=== PATIENT | female | born 1940 | race Two or more races ===

== ENCOUNTER 2018-06-26 12:47 | Emergency (ER) | payer MEDICARE, OTHER ==
[~2018-06-26] VITALS: Ht 162.6 cm; Wt 87.7 kg
[2018-06-26 13:20] LABS: BASOPHILS # (AUTO) 0.06 x10^3/uL (0-0.1); BASOPHILS % (AUTO) 1 % (0-1); EOSINOPHILS # (AUTO) 0.24 x10^3/uL (0-0.4); EOSINOPHILS % (AUTO) 2 % (1-7); LYMPHOCYTES # (AUTO) 3.29 x10^3/uL (1-3.4); LYMPHOCYTES % (AUTO) 32 % (22-44); MD NO; MEAN CORPUSCULAR HEMOGLOBIN 31.7 pg (27.0-34.8); MEAN CORPUSCULAR HGB CONC 33.1 g/dL (32.4-35.8); MEAN CORPUSCULAR VOLUME 95.8 fL (80-100); MEAN PLATELET VOLUME 10.2 fL (7.4-10.4); MONOCYTES % (AUTO) 9 % (2-9); NEUTROPHILS # (AUTO) 5.89 x10^3/uL (1.8-6.8); NEUTROPHILS % (AUTO) 57 % (42-75); PLATELET COUNT 243 x10^3/uL (130-400); RED BLOOD COUNT 4.33 x10^6/uL (3.82-5.3); RED CELL DISTRIBUTION WIDTH 14.1 % (9.6-15.2)
[2018-06-26 13:27] LABS: INTERNATIONAL NORMALIZED RATIO 1.51 (0.93-1.1); PROTHROMBIN TIME 15.8 Seconds (9.6-11.5)
[2018-06-26 13:30] LABS: CHLORIDE 107 mmol/L (98-107)
[2018-06-26 13:31] LABS: ALBUMIN 3.6 g/dL (3.4-5.0); ANION GAP 7 mmol/L (5-15)
[2018-06-26 13:36] LABS: ALANINE AMINOTRANSFERASE 19 U/L (12-78); ALKALINE PHOSPHATASE 66 U/L (45-117); BILIRUBIN,TOTAL 0.6 mg/dL (0.2-1.0); CREATININE 1.38 mg/dL (0.55-1.02); TOTAL PROTEIN 7.7 g/dL (6.4-8.2); TROPONIN I < 0.015 ng/mL (0.000-0.045)
--- NOTE | 2018-06-26 15:24 | NUR ---
DIGITAL PROJECT COORDINATOR: PT TO ROOM FROM ANTOINE NUNO.
[2018-06-26] MEDS ORDERED: CEFTRIAXONE PMX 1GM/50ML 50 ML ONE (15:48)
[2018-06-26] MEDS ORDERED: AZITHROMYCIN 500 MG in SODIUM CHLORIDE 0.9% 250 ML IV ONE (16:00)
[2018-06-26] MEDS ORDERED: CEFTRIAXONE PMX 1GM/50ML 50 ML IV ONE (16:00)
[2018-06-26] MEDS ORDERED: SODIUM CHLORIDE 0.9% 1,000 ML IV SCH (16:00)
--- NOTE | 2018-06-26 16:01 | NUR ---
pt upright on gurney awake & comfortable, Bengali-speaking but responds approp to staff, NAD, comfort measures provided, at BS, call light within reach.
[2018-06-26 17:16] VITALS: BP 131/66
--- NOTE | 2018-06-26 17:36 | NUR ---
Patient & spouse given discharge instructions and Rx, they have confirmed that they understand the instructions. Patient ambulatory with steady gait.
== END 2018-06-26 17:36 | disposition home or self-care (01) ==
LOC: ED 17:05
DX: J15.9 Unspecified bacterial pneumonia (principal); I48.2 Chronic atrial fibrillation; I10 Essential (primary) hypertension
CPT/HCPCS: 36415; 71045; 80053; 84484; 85025; 85610; 93005; 96365; 96367; 99284; J0456; J0696; J7030; J7050

== ENCOUNTER → 2018-09-06 | Outpatient (CLI) | payer MEDICARE ==
[~2018-09-06] MED LIST: AMLO-150 PO; ASCO500T8 PO; ATOR20TA PO; CHOL200040 PO; HYDR25TA6 PO; LISI-167 PO; METO25TA35 PO; MULT-658 PO; OMEG1CAP23 PO; OMEP-110 PO; RIVA20TA PO; SIMV40TA3 PO; SYSTANE; aleve
== END | disposition home or self-care (01) ==
LOC: CFH 13:25
PROVIDERS: ATTEND Family Medicine
DX: L98.9 Disorder of the skin and subcutaneous tissue, unspecified (principal); S06.5X0A Traumatic subdural hemorrhage without loss of consciousness, initial encounter; R90.82 White matter disease, unspecified; X58.XXXA Exposure to other specified factors, initial encounter; Y93.89 Activity, other specified; Y92.89 Other specified places as the place of occurrence of the external cause; Y99.8 Other external cause status
CPT/HCPCS: 70450; 77066; G0279

== ENCOUNTER 2018-10-04 15:19 | Inpatient (IN) | payer MEDICARE ==
[~2018-10-04] VITALS: Ht 134.6 cm; Wt 88.4 kg
[2018-10-04 16:28] LABS: INTERNATIONAL NORMALIZED RATIO 1.02 (0.93-1.1); PROTHROMBIN TIME 10.7 Seconds (9.6-11.5)
[2018-10-04 16:29] LABS: ALANINE AMINOTRANSFERASE 21 U/L (12-78); ALBUMIN 3.7 g/dL (3.4-5.0); ANION GAP 9 mmol/L (5-15); CALCIUM 9.4 mg/dL (8.5-10.1); CHLORIDE 114 mmol/L (98-107); CREATININE 1.61 mg/dL (0.55-1.02)
[2018-10-04 16:33] LABS: ALKALINE PHOSPHATASE 71 U/L (45-117); BILIRUBIN,TOTAL 0.4 mg/dL (0.2-1.0); TOTAL PROTEIN 7.5 g/dL (6.4-8.2); TROPONIN I < 0.015 ng/mL (0.000-0.045)
[2018-10-04] MEDS ORDERED: DILTIAZEM 5 MG/ML, 10ML ONE (16:46)
[2018-10-04] MEDS ORDERED: DILTIAZEM 5 MG/ML, 5ML IVPush ONE (17:00)
[2018-10-04] MEDS ORDERED: SODIUM CHLORIDE FLUSH 10ML SYR IVF ONE (17:00)
[2018-10-04 17:07] LABS: MEAN CORPUSCULAR HEMOGLOBIN 31.7 pg (27.0-34.8); MEAN CORPUSCULAR HGB CONC 33.8 g/dL (32.4-35.8); MEAN CORPUSCULAR VOLUME 93.7 fL (80-100); MEAN PLATELET VOLUME 10.2 fL (7.4-10.4); PLATELET COUNT 185 x10^3/uL (130-400); RED BLOOD COUNT 4.48 x10^6/uL (3.82-5.3); RED CELL DISTRIBUTION WIDTH 15.2 % (9.6-15.2)
[2018-10-04 17:08] LABS: MD YES
[2018-10-04 17:11] LABS: <PLATELET ESTIMATE> ADEQUATE; <PLT MORPHOLOGY> NORMAL PLT MORPH; <RBC MORPHOLOGY> NORMAL; EOS#(MANUAL) 0.07 x10^3/uL (0.0-0.4); EOS% (MANUAL) 1 % (1-7); LYMPH#(MANUAL) 3.55 x10^3/uL (1-3.4); LYMPHS% (MANUAL) 48 % (22-44); MONOS#(MANUAL) 0.96 x10^3/uL (0.3-2.7); MONOS% (MANUAL) 13 % (2-9); REACTIVE LYMPHS # (MANUAL) 0.59 x10^3/uL (0-0); REACTIVE LYMPHS % (MANUAL) 8 % (0-0); SEG#(MANUAL) 2.22 x10^3/uL (1.8-6.8); SEGS% (MANUAL) 30 % (42-75)
--- NOTE | 2018-10-04 17:15 | NUR ---
PT GIVEN MEDS PER ORDERS DILT HR DROP TO 98
[2018-10-04] MEDS ORDERED: DILTIAZEM 60 MG TABLET ONE (17:56)
[2018-10-04] MEDS ORDERED: DILTIAZEM 60 MG TABLET PO ONE (18:00)
--- NOTE | 2018-10-04 18:09 | NUR ---
SBAR RPT REC'D FROM HECTOR OLSON. ASSUMED PT CARE. PT VSS, NAD NOTED.
[2018-10-04] MEDS ORDERED: POLYETHYLENE GLYCOL 17 GM PACKET PO PRN (19:00)
[2018-10-04] MEDS ORDERED: ACETAMINOPHEN 325 MG TABLET PO PRN (19:00)
[2018-10-04] MEDS ORDERED: ONDANSETRON ODT 4 MG PO PRN (19:00)
[2018-10-04] MEDS ORDERED: BISACODYL 10 MG SUPP PR PRN (19:00)
--- NOTE | 2018-10-04 20:27 | NUR ---
REPORT GIVEN TO RN FOR ROOM 519.
--- NOTE | 2018-10-04 20:29 | NUR ---
PT UP TO THE BATHROOM WITH STEADY GAIT. FAMILY AT BEDSIDE.
[2018-10-04] MEDS ORDERED: APIXABAN 5 MG TABLET PO SCH (21:00)
[2018-10-04 21:05] VITALS: BP 144/76
[2018-10-04 21:06] VITALS: BP 144/76
[2018-10-04] MEDS: SODIUM CHLORIDE FLUSH 10ML SYR IVF SCH (21:12)
[2018-10-04] MEDS: SODIUM CHLORIDE 0.9% 1,000 ML IV SCH (21:15)
[2018-10-05 01:45] VITALS: BP 145/84
[2018-10-05 05:34] LABS: BASOPHILS # (AUTO) 0.07 x10^3/uL (0-0.1); BASOPHILS % (AUTO) 1 % (0-1); EOSINOPHILS # (AUTO) 0.13 x10^3/uL (0-0.4); EOSINOPHILS % (AUTO) 2 % (1-7); LYMPHOCYTES # (AUTO) 3.62 x10^3/uL (1-3.4); LYMPHOCYTES % (AUTO) 53 % (22-44); MD NO; MEAN CORPUSCULAR HEMOGLOBIN 31.6 pg (27.0-34.8); MEAN CORPUSCULAR HGB CONC 33.8 g/dL (32.4-35.8); MEAN CORPUSCULAR VOLUME 93.5 fL (80-100); MEAN PLATELET VOLUME 10.2 fL (7.4-10.4); MONOCYTES # (AUTO) 1.22 x10^3/uL (0.2-0.8); MONOCYTES % (AUTO) 18 % (2-9); NEUTROPHILS # (AUTO) 1.79 x10^3/uL (1.8-6.8); NEUTROPHILS % (AUTO) 26 % (42-75); PLATELET COUNT 160 x10^3/uL (130-400); RED BLOOD COUNT 4.12 x10^6/uL (3.82-5.3); RED CELL DISTRIBUTION WIDTH 15.5 % (9.6-15.2)
[2018-10-05 06:00] LABS: CHLORIDE 115 mmol/L (98-107)
[2018-10-05] MEDS ORDERED: METOPROLOL TARTRATE 50 MG TABLET PO SCH (06:00)
[2018-10-05 06:37] LABS: ALANINE AMINOTRANSFERASE 19 U/L (12-78); ALBUMIN 3.1 g/dL (3.4-5.0); ALKALINE PHOSPHATASE 53 U/L (45-117); ANION GAP 8 mmol/L (5-15); BILIRUBIN,TOTAL 0.4 mg/dL (0.2-1.0); CALCIUM 8.9 mg/dL (8.5-10.1); CREATININE 1.28 mg/dL (0.55-1.02); TOTAL PROTEIN 6.4 g/dL (6.4-8.2)
[2018-10-05] MEDS: SODIUM CHLORIDE 0.9% 1,000 ML IV SCH (06:54)
[2018-10-05 07:16] VITALS: BP 127/55
[2018-10-05] MEDS ORDERED: ACETAMINOPHEN 325 MG TABLET PO PRN (08:30)
[2018-10-05] MEDS: SODIUM CHLORIDE FLUSH 10ML SYR IVF SCH ×2 (09:00→20:57)
[2018-10-05] MEDS: MULTIVITAMIN 1 TABLET PO SCH (09:09)
[2018-10-05] MEDS: OMEGA-3/FISH OIL CAPSULE PO SCH (09:09)
[2018-10-05] MEDS: LACTOBACILLUS CHEW TABLET PO SCH ×3 (09:09→20:55)
[2018-10-05] MEDS: APIXABAN 5 MG TABLET PO SCH ×2 (09:09→20:56)
[2018-10-05] MEDS: ASCORBIC ACID 500 MG TABLET PO SCH (09:09)
[2018-10-05] MEDS: CHOLECALCIFEROL 1,000 UNIT TABLET PO SCH (09:10)
[2018-10-05] MEDS: OMEPRAZOLE 20 MG CAPSULE.DR PO SCH (09:10)
[2018-10-05] MEDS: SENNA/DOCUSATE TABLET PO SCH (09:11)
[2018-10-05] MEDS: CARVEDILOL 6.25 MG TABLET PO SCH (17:05)
[2018-10-05] MEDS ORDERED: SODIUM CHLORIDE 0.9% 1,000 ML IV SCH (19:30)
[2018-10-05 19:50] VITALS: BP 147/92
[2018-10-05] MEDS ORDERED: DILTIAZEM 5 MG/ML, 5ML IVPush ONE (20:30)
[2018-10-05] MEDS: MELATONIN 5 MG TABLET PO PRN (20:55)
[2018-10-05] MEDS ORDERED: DIPHENOXYLATE/ATROPINE TABLET PO PRN (22:30)
[2018-10-06 02:18] VITALS: BP 148/86
[2018-10-06 05:31] LABS: CHLORIDE 118 mmol/L (98-107)
[2018-10-06 05:33] LABS: ANION GAP 6 mmol/L (5-15); CALCIUM 8.5 mg/dL (8.5-10.1); CREATININE 1.13 mg/dL (0.55-1.02)
[2018-10-06] MEDS: CARVEDILOL 6.25 MG TABLET PO SCH (05:34)
[2018-10-06 08:37] VITALS: BP 144/85
[2018-10-06] MEDS: OMEPRAZOLE 20 MG CAPSULE.DR PO SCH (08:38)
[2018-10-06] MEDS: ASCORBIC ACID 500 MG TABLET PO SCH (08:38)
[2018-10-06] MEDS: OMEGA-3/FISH OIL CAPSULE PO SCH (08:38)
[2018-10-06] MEDS: APIXABAN 5 MG TABLET PO SCH ×2 (08:38→19:59)
[2018-10-06] MEDS: CHOLECALCIFEROL 1,000 UNIT TABLET PO SCH (08:38)
[2018-10-06] MEDS: LACTOBACILLUS CHEW TABLET PO SCH ×3 (08:38→20:51)
[2018-10-06] MEDS: MULTIVITAMIN 1 TABLET PO SCH (08:38)
[2018-10-06] MEDS: SODIUM CHLORIDE FLUSH 10ML SYR IVF SCH ×2 (08:38→20:51)
[2018-10-06] MEDS: SENNA/DOCUSATE TABLET PO SCH (08:39)
[2018-10-06] MEDS ORDERED: CARVEDILOL 6.25 MG TABLET PO ONE (12:30)
[2018-10-06 13:52] VITALS: BP 150/103
[2018-10-06] MEDS: CARVEDILOL 12.5 MG TABLET PO SCH (17:50)
[2018-10-06 19:44] VITALS: BP 123/85
[2018-10-06] MEDS: MELATONIN 5 MG TABLET PO PRN (20:50)
[2018-10-06] MEDS ORDERED: APIXABAN 5 MG TABLET PO ONE (21:30)
[2018-10-07 05:17] VITALS: BP 129/83
[2018-10-07] MEDS: CARVEDILOL 12.5 MG TABLET PO SCH (05:17)
[2018-10-07 06:50] VITALS: BP 116/77
[2018-10-07] MEDS: ASCORBIC ACID 500 MG TABLET PO SCH (08:32)
[2018-10-07] MEDS: CHOLECALCIFEROL 1,000 UNIT TABLET PO SCH (08:32)
[2018-10-07] MEDS: APIXABAN 5 MG TABLET PO SCH (08:32)
[2018-10-07] MEDS: OMEPRAZOLE 20 MG CAPSULE.DR PO SCH (08:32)
[2018-10-07] MEDS: OMEGA-3/FISH OIL CAPSULE PO SCH (08:32)
[2018-10-07] MEDS: MULTIVITAMIN 1 TABLET PO SCH (08:33)
[2018-10-07] MEDS: LACTOBACILLUS CHEW TABLET PO SCH (08:33)
[2018-10-07] MEDS: SENNA/DOCUSATE TABLET PO SCH (08:33)
[2018-10-07 08:37] VITALS: BP 138/89
[2018-10-07] MEDS: SODIUM CHLORIDE FLUSH 10ML SYR IVF SCH (08:37)
[2018-10-07] MEDS ORDERED: APIX5TAB PO (09:51)
[2018-10-07] MEDS ORDERED: CARV12.543 PO (09:51)
[2018-10-07] MEDS ORDERED: MELA5TAB19 PO (09:51)
[2018-10-07] MEDS ORDERED: ACID1TAB7 PO (09:51)
== END 2018-10-07 11:22 | disposition home or self-care (01) | DRG 308 ==
LOC: ED 16:18 → EDIP 18:10 → 5SO 20:58 → DCLOUNGE 10-07 11:00
PROVIDERS: ADMIT Family Medicine; ATTEND Family Medicine
DX: I48.91 Unspecified atrial fibrillation (principal); N17.0 Acute kidney failure with tubular necrosis; D68.69 Other thrombophilia; Z68.42 Body mass index [BMI] 45.0-49.9, adult; I50.20 Unspecified systolic (congestive) heart failure; I11.0 Hypertensive heart disease with heart failure; E66.01 Morbid (severe) obesity due to excess calories; E78.5 Hyperlipidemia, unspecified; F17.210 Nicotine dependence, cigarettes, uncomplicated; I49.3 Ventricular premature depolarization; K44.9 Diaphragmatic hernia without obstruction or gangrene; Z82.49 Family history of ischemic heart disease and other diseases of the circulatory system; Z86.73 Personal history of transient ischemic attack (TIA), and cerebral infarction without residual deficits; Z90.49 Acquired absence of other specified parts of digestive tract; Z79.01 Long term (current) use of anticoagulants
CPT/HCPCS: 36415; 71045; 80048; 80053; 83735; 84443; 84484; 85025; 85610; 85730; 93005; 93306; 99285; G0378; J7030

== ENCOUNTER 2018-10-31 08:05 | Emergency (ER) | payer MEDICARE ==
[~2018-10-31] VITALS: Ht 162.6 cm; Wt 86.3 kg
[~2018-10-31 08:05] MED LIST changes: +ACID1TAB7 PO; +APIX5TAB PO; +CARV12.543 PO; +MELA5TAB19 PO
[2018-10-31 08:11] VITALS: BP 143/80
--- NOTE | 2018-10-31 08:37 | NUR ---
BRIJESH GEORGE AT BEDSIDE USING VIDEO STERILISATION TECHNICIAN TO COMMUNICATE WITH PATIENT.
--- NOTE | 2018-10-31 09:53 | NUR ---
Patient/Caregiver given discharge instructions and they have confirmed that they understand the instructions. Patient ambulatory with steady gait.
== END 2018-10-31 09:54 | disposition home or self-care (01) ==
LOC: ED 08:54
DX: H10.023 Other mucopurulent conjunctivitis, bilateral (principal); G47.00 Insomnia, unspecified; E78.5 Hyperlipidemia, unspecified; I48.91 Unspecified atrial fibrillation; I10 Essential (primary) hypertension; Z86.73 Personal history of transient ischemic attack (TIA), and cerebral infarction without residual deficits
CPT/HCPCS: 71045; 93005; 99283

== ENCOUNTER 2018-11-05 00:54 | Inpatient (IN) | payer MEDICARE ==
[~2018-11-05] VITALS: Ht 157.5 cm; Wt 95.9 kg
[2018-11-05] MEDS ORDERED: HYDR25TA11 PO (01:29)
--- NOTE | 2018-11-05 01:29 | NUR ---
TASK RN: PT TO ROOM BY WHEELCHAIR FROM TRIAGE. PT SITTING UP IN RNEY, PWD. PT REPORTS "TOO MUCH GAS"/ABD BLOATING X 'A FEW HOURS'. ONSET WHILE IN BED. +SOB. RESPIRATIONS RAPID AND SHALLOW, RR 30'S. SPO2 >90% ON RA. PT SPEAKING IN SHORT, 3 WORD SENTENCES. PT DENIES CP/FEVER/COUGH/N/V/D. HX OF CHF/HTN/AFIB. NO LE EDEMA NOTED. BP/SPO2/ECG MONITORING IN PLACE. AFIB, HR 120-130 W/ FREQUENT PVC'S NOTED. IV ESTABLISHED, LABS DRAWN. ERP AT BEDSIDE FOR INITIAL ASSESSMENT
[2018-11-05] MEDS ORDERED: SODIUM CHLORIDE FLUSH 10ML SYR IVF ONE (01:30)
--- NOTE | 2018-11-05 01:34 | NUR ---
TASK RN: REPORT TO HECTOR DUFYF
--- NOTE | 2018-11-05 01:45 | NUR ---
assumed care of pt, pt tolerated piv, in nad at this time, at bs
[2018-11-05 02:06] LABS: BASOPHILS # (AUTO) 0.07 x10^3/uL (0-0.1); BASOPHILS % (AUTO) 1 % (0-1); EOSINOPHILS # (AUTO) 0.25 x10^3/uL (0-0.4); EOSINOPHILS % (AUTO) 2 % (1-7); LYMPHOCYTES # (AUTO) 3.94 x10^3/uL (1-3.4); LYMPHOCYTES % (AUTO) 37 % (22-44); MD NO; MEAN CORPUSCULAR HEMOGLOBIN 30.4 pg (27.0-34.8); MEAN CORPUSCULAR HGB CONC 31.5 g/dL (32.4-35.8); MEAN CORPUSCULAR VOLUME 96.5 fL (80-100); MEAN PLATELET VOLUME 10.5 fL (7.4-10.4); MONOCYTES # (AUTO) 0.88 x10^3/uL (0.2-0.8); MONOCYTES % (AUTO) 8 % (2-9); NEUTROPHILS # (AUTO) 5.52 x10^3/uL (1.8-6.8); NEUTROPHILS % (AUTO) 52 % (42-75); PLATELET COUNT 189 x10^3/uL (130-400); RED BLOOD COUNT 4.67 x10^6/uL (3.82-5.3); RED CELL DISTRIBUTION WIDTH 16.6 % (9.6-15.2)
[2018-11-05 02:17] LABS: ALANINE AMINOTRANSFERASE 23 U/L (12-78); ALBUMIN 3.6 g/dL (3.4-5.0); ANION GAP 10 mmol/L (5-15); CHLORIDE 110 mmol/L (98-107); CREATININE 1.51 mg/dL (0.55-1.02)
[2018-11-05 02:22] LABS: ALKALINE PHOSPHATASE 71 U/L (45-117); BILIRUBIN,TOTAL 0.7 mg/dL (0.2-1.0); TOTAL PROTEIN 7.7 g/dL (6.4-8.2); TROPONIN I < 0.015 ng/mL (0.000-0.045)
[2018-11-05] MEDS ORDERED: FUROSEMIDE 40 MG/4 ML IV ONE (02:30)
[2018-11-05] MEDS ORDERED: FUROSEMIDE 40 MG/4 ML ONE (02:31)
--- NOTE | 2018-11-05 02:37 | NUR ---
awaiting admit bed at this time pt up to bathroom in nad
[2018-11-05] MEDS ORDERED: DILTIAZEM 5 MG/ML, 5ML ONE (02:50)
[2018-11-05] MEDS ORDERED: DILTIAZEM 5 MG/ML, 5ML IVPush ONE (03:00)
--- NOTE | 2018-11-05 03:16 | NUR ---
REPORT TO JORDANA PT TO FLOOR WITH TECH
[2018-11-05] MEDS ORDERED: hydrALAzine 20 MG/ML, 1ML IVPush PRN (03:30)
[2018-11-05] MEDS ORDERED: MELATONIN 5 MG TABLET PO PRN (04:00)
[2018-11-05 04:30] LABS: MICROSCOPIC AUTO
[2018-11-05 04:33] LABS: CULTURE INDICATED? YES
[2018-11-05 05:35] VITALS: BP 161/90
[2018-11-05] MEDS: CARVEDILOL 12.5 MG TABLET PO SCH ×2 (06:23→18:03)
[2018-11-05 08:59] VITALS: BP 143/84
[2018-11-05] MEDS: OMEPRAZOLE 20 MG CAPSULE.DR PO SCH (09:22)
[2018-11-05] MEDS: APIXABAN 5 MG TABLET PO SCH ×2 (09:22→20:01)
[2018-11-05] MEDS: LISINOPRIL 20 MG TABLET PO SCH (09:22)
[2018-11-05] MEDS: ACETAMINOPHEN 325 MG TABLET PO PRN (11:03)
[2018-11-05 13:55] VITALS: BP 140/84
[2018-11-05 18:03] VITALS: BP 120/82
[2018-11-05 19:02] VITALS: BP 133/78
[2018-11-06 00:19] VITALS: BP 134/93
[2018-11-06 05:28] LABS: BASOPHILS # (AUTO) 0.06 x10^3/uL (0-0.1); BASOPHILS % (AUTO) 1 % (0-1); EOSINOPHILS # (AUTO) 0.25 x10^3/uL (0-0.4); EOSINOPHILS % (AUTO) 3 % (1-7); LYMPHOCYTES # (AUTO) 2.68 x10^3/uL (1-3.4); LYMPHOCYTES % (AUTO) 33 % (22-44); MD NO; MEAN CORPUSCULAR HEMOGLOBIN 31.5 pg (27.0-34.8); MEAN CORPUSCULAR VOLUME 95.5 fL (80-100); MEAN PLATELET VOLUME 10.3 fL (7.4-10.4); MONOCYTES # (AUTO) 0.99 x10^3/uL (0.2-0.8); MONOCYTES % (AUTO) 12 % (2-9); NEUTROPHILS # (AUTO) 4.13 x10^3/uL (1.8-6.8); NEUTROPHILS % (AUTO) 51 % (42-75); PLATELET COUNT 176 x10^3/uL (130-400); RED BLOOD COUNT 4.84 x10^6/uL (3.82-5.3); RED CELL DISTRIBUTION WIDTH 16.8 % (9.6-15.2)
[2018-11-06 05:38] LABS: ALBUMIN 3.7 g/dL (3.4-5.0); ANION GAP 6 mmol/L (5-15); CALCIUM 9.3 mg/dL (8.5-10.1); CHLORIDE 111 mmol/L (98-107); CREATININE 1.46 mg/dL (0.55-1.02)
[2018-11-06 06:00] VITALS: BP 147/94
[2018-11-06] MEDS: CARVEDILOL 12.5 MG TABLET PO SCH (06:10)
[2018-11-06] MEDS: OMEPRAZOLE 20 MG CAPSULE.DR PO SCH (07:42)
[2018-11-06] MEDS: APIXABAN 5 MG TABLET PO SCH (07:42)
[2018-11-06] MEDS: LISINOPRIL 20 MG TABLET PO SCH (07:42)
[2018-11-06] MEDS: ACETAMINOPHEN 325 MG TABLET PO PRN (07:42)
[2018-11-06] MEDS ORDERED: LISI-167 PO (08:04)
[2018-11-06] MEDS ORDERED: FURO-93 PO (08:04)
[2018-11-06 08:15] VITALS: BP 147/81
== END 2018-11-06 09:46 | disposition home or self-care (01) | DRG 291 ==
LOC: ED 01:22 → EDIP 02:47 → 5SO 03:46 → DCLOUNGE 11-06 09:10
PROVIDERS: ADMIT Internal Medicine; ATTEND Internal Medicine
DX: I13.0 Hypertensive heart and chronic kidney disease with heart failure and stage 1 through stage 4 chronic kidney disease, or unspecified chronic kidney disease (principal); I50.41 Acute combined systolic (congestive) and diastolic (congestive) heart failure; D68.69 Other thrombophilia; I42.9 Cardiomyopathy, unspecified; I48.2 Chronic atrial fibrillation; E78.5 Hyperlipidemia, unspecified; K21.9 Gastro-esophageal reflux disease without esophagitis; K76.0 Fatty (change of) liver, not elsewhere classified; N18.3 Chronic kidney disease, stage 3 (moderate); R09.1 Pleurisy; Z79.01 Long term (current) use of anticoagulants; Z79.899 Other long term (current) drug therapy; Z82.3 Family history of stroke; Z82.49 Family history of ischemic heart disease and other diseases of the circulatory system; Z86.73 Personal history of transient ischemic attack (TIA), and cerebral infarction without residual deficits; Z87.891 Personal history of nicotine dependence
CPT/HCPCS: 36415; 71045; 76700; 78582; 80048; 80053; 81001; 82040; 83735; 83880; 84100; 84443; 84484; 85025; 87086; 93005; 93306; 96374; G0378; J1940; A9540; A9558; C9898; Q0177

== ENCOUNTER 2018-11-13 06:13 | Inpatient (IN) | payer MEDICARE ==
[~2018-11-13] VITALS: Ht 162.6 cm; Wt 80.9 kg
[~2018-11-13 06:13] MED LIST changes: +FURO-93 PO; +HYDR25TA11 PO
[2018-11-13] MEDS ORDERED: ALBUTEROL/IPRATROPIUM 2.5MG/0.5MG, 3 ML ONE (06:45)
--- NOTE | 2018-11-13 06:56 | NUR ---
REPORT TO SEKOU YOUNG.
[2018-11-13] MEDS ORDERED: SODIUM CHLORIDE FLUSH 10ML SYR IVF ONE (07:00)
[2018-11-13] MEDS ORDERED: ALBUTEROL/IPRATROPIUM 2.5MG/0.5MG, 3 ML NPPB ONE (07:00)
[2018-11-13] MEDS ORDERED: NITROGLYCERIN SINGLE TAB 0.4 MG SL ONE ×2 (07:00→07:36)
[2018-11-13] MEDS ORDERED: NITROGLYCERIN OINT 2%, 1GM TP ONE ×2 (07:00→07:37)
--- NOTE | 2018-11-13 07:16 | NUR ---
PT SITTING UP IN BED. DENIES PAIN AT THIS TIME. AT BEDSIDE. PT IS PRIMARILY GREEK SPEAKING, IS ASSISTING WITH COMMUNICATION. VSS.
[2018-11-13 07:20] LABS: MEAN CORPUSCULAR HEMOGLOBIN 30.7 pg (27.0-34.8); MEAN CORPUSCULAR HGB CONC 31.8 g/dL (32.4-35.8); MEAN CORPUSCULAR VOLUME 96.4 fL (80-100); MEAN PLATELET VOLUME 10.4 fL (7.4-10.4); PLATELET COUNT 201 x10^3/uL (130-400); RED BLOOD COUNT 5.31 x10^6/uL (3.82-5.3); RED CELL DISTRIBUTION WIDTH 17.2 % (9.6-15.2)
[2018-11-13 07:21] LABS: ALANINE AMINOTRANSFERASE 19 U/L (12-78); ALBUMIN 3.7 g/dL (3.4-5.0); ANION GAP 9 mmol/L (5-15); CALCIUM 9.2 mg/dL (8.5-10.1); CHLORIDE 107 mmol/L (98-107); CREATININE 1.66 mg/dL (0.55-1.02)
[2018-11-13 07:25] LABS: ALKALINE PHOSPHATASE 64 U/L (45-117); BILIRUBIN,TOTAL 0.8 mg/dL (0.2-1.0); TROPONIN I < 0.015 ng/mL (0.000-0.045)
[2018-11-13 07:42] LABS: BASOPHILS # (AUTO) 0.06 x10^3/uL (0-0.1); BASOPHILS % (AUTO) 0 % (0-1); EOSINOPHILS # (AUTO) 0.03 x10^3/uL (0-0.4); EOSINOPHILS % (AUTO) 0 % (1-7); LYMPHOCYTES # (AUTO) 4.39 x10^3/uL (1-3.4); LYMPHOCYTES % (AUTO) 30 % (22-44); MD SCAN; MONOCYTES # (AUTO) 1.27 x10^3/uL (0.2-0.8); MONOCYTES % (AUTO) 9 % (2-9); NEUTROPHILS # (AUTO) 8.88 x10^3/uL (1.8-6.8); NEUTROPHILS % (AUTO) 61 % (42-75)
[2018-11-13] MEDS ORDERED: LISI5TAB7 PO (07:52)
--- NOTE | 2018-11-13 07:55 | NUR ---
JULIETA AT BEDSIDE, STATES THAT PT CONDITION IS IMPROVING. HE IS GOING TO ORDER ANOTHER BREATHING TREATMENT.
[2018-11-13] MEDS ORDERED: ALBUTEROL SULFATE 2.5 MG/3 ML NPPB SCH (08:00)
--- NOTE | 2018-11-13 08:09 | NUR ---
PT TAKEN TO CT BY TRANSPORT. WENT WITH PT.
[2018-11-13] MEDS ORDERED: ALBUTEROL SULFATE 2.5 MG/3 ML ONE ×2 (08:24)
[2018-11-13] MEDS ORDERED: ACETAMINOPHEN 500 MG TABLET PO ONE (08:30)
[2018-11-13] MEDS ORDERED: ACETAMINOPHEN 500 MG TABLET ONE (08:43)
--- NOTE | 2018-11-13 08:47 | NUR ---
PT REPORTS SHE IS FEELING MUCH BETTER.
--- NOTE | 2018-11-13 09:12 | NUR ---
REPORT TO CORRINE YOUNG
--- NOTE | 2018-11-13 09:13 | NUR ---
NITRO PASTE REMOVED DUE TO HYPOTENSION. NO ACUTE SIGNS OF DISTRESS.
--- NOTE | 2018-11-13 09:14 | NUR ---
I AM ASSUMING CARE OF THIS PT FROM JARED DOBBS (RN) AT THIS TIME. SBAR REPORT WAS EXCHANGED AT THE BEDSIDE.
--- NOTE | 2018-11-13 09:43 | NUR ---
PT SLEEPING. VSS. NO ACUTE SIGNS OF DISTRESS. AT BEDSIDE.
--- NOTE | 2018-11-13 10:27 | NUR ---
PT RESTING COMFORTABLY ON AN E.R. GURNEY WHILE AWAITING A ROOM ASSIGNMENT FOR ADMISSION. VS ARE STABLE, AND WDL. I WILL CONTINUE TO MONITOR AND TREAT ORDERED, WELL PRN WHILE AWAITNG A ROOM ASSIGNMENT.
--- NOTE | 2018-11-13 10:34 | NUR ---
VERBAL SBAR REPORT EXCHANGED Isaias DELGADILLO (HECTOR) ON THE FLOOR FOR ADMISSION. WE WILL BEGIN TO PREPARE FOR TRANSPORT AT THIS TIME.
[2018-11-13] MEDS ORDERED: ALBUTEROL/IPRATROPIUM 2.5MG/0.5MG, 3 ML NPPB SCH (11:00)
[2018-11-13 11:11] VITALS: BP 121/76
[2018-11-13] MEDS ORDERED: ONDANSETRON 2MG/ML, 2ML IVPush PRN (12:00)
[2018-11-13] MEDS ORDERED: LABETALOL 5MG/ML, 20ML IVPush PRN (12:00)
[2018-11-13] MEDS ORDERED: GUAIFENESIN 200 MG TABLET PO SCH (12:00)
[2018-11-13] MEDS ORDERED: ACETAMINOPHEN 325 MG TABLET PO PRN (12:00)
[2018-11-13] MEDS: CEFTRIAXONE PMX 1GM/50ML 50 ML IV SCH (12:24)
[2018-11-13] MEDS: DOXYCYCLINE 100 MG in DEXTROSE 5% 250 ML IV SCH (13:20)
[2018-11-13 15:15] VITALS: BP 108/74
[2018-11-13 15:31] LABS: CULTURE INDICATED? YES; MICROSCOPIC INDICATED
[2018-11-13] MEDS: CARVEDILOL 12.5 MG TABLET PO SCH (17:44)
[2018-11-13] MEDS: GUAIFENESIN 200 MG TABLET PO SCH ×2 (17:44→20:45)
[2018-11-13] MEDS: FUROSEMIDE 20 MG/2 ML IV SCH (17:44)
[2018-11-13 19:26] VITALS: BP 90/57
[2018-11-13] MEDS: APIXABAN 5 MG TABLET PO SCH (20:45)
[2018-11-14] MEDS: DOXYCYCLINE 100 MG in DEXTROSE 5% 250 ML IV SCH ×2 (00:41→12:35)
[2018-11-14 01:22] VITALS: BP 123/81
[2018-11-14 05:15] LABS: BASOPHILS # (AUTO) 0.06 x10^3/uL (0-0.1); BASOPHILS % (AUTO) 1 % (0-1); EOSINOPHILS # (AUTO) 0.12 x10^3/uL (0-0.4); EOSINOPHILS % (AUTO) 1 % (1-7); LYMPHOCYTES # (AUTO) 4.43 x10^3/uL (1-3.4); LYMPHOCYTES % (AUTO) 42 % (22-44); MD NO; MEAN CORPUSCULAR HEMOGLOBIN 31.2 pg (27.0-34.8); MEAN CORPUSCULAR HGB CONC 32.2 g/dL (32.4-35.8); MEAN CORPUSCULAR VOLUME 97.1 fL (80-100); MEAN PLATELET VOLUME 10.5 fL (7.4-10.4); MONOCYTES # (AUTO) 1.02 x10^3/uL (0.2-0.8); MONOCYTES % (AUTO) 10 % (2-9); NEUTROPHILS # (AUTO) 5.02 x10^3/uL (1.8-6.8); NEUTROPHILS % (AUTO) 47 % (42-75); PLATELET COUNT 206 x10^3/uL (130-400); RED CELL DISTRIBUTION WIDTH 16.8 % (9.6-15.2)
[2018-11-14 05:26] LABS: ALBUMIN 3.2 g/dL (3.4-5.0); ANION GAP 11 mmol/L (5-15); CALCIUM 8.7 mg/dL (8.5-10.1); CHLORIDE 104 mmol/L (98-107)
[2018-11-14 05:29] LABS: ALANINE AMINOTRANSFERASE 16 U/L (12-78); ALKALINE PHOSPHATASE 58 U/L (45-117); BILIRUBIN,TOTAL 1.2 mg/dL (0.2-1.0); CREATININE 1.68 mg/dL (0.55-1.02); TOTAL PROTEIN 7.4 g/dL (6.4-8.2)
[2018-11-14 05:45] VITALS: BP 118/68
[2018-11-14] MEDS: CARVEDILOL 12.5 MG TABLET PO SCH ×2 (05:47→17:10)
[2018-11-14] MEDS: GUAIFENESIN 200 MG TABLET PO SCH ×4 (05:47→20:48)
[2018-11-14] MEDS: DOCUSATE 100 MG CAPSULE PO PRN ×2 (05:47→18:37)
[2018-11-14 08:07] VITALS: BP 100/53
[2018-11-14] MEDS: APIXABAN 5 MG TABLET PO SCH ×2 (08:40→20:48)
[2018-11-14] MEDS: OMEPRAZOLE 20 MG CAPSULE.DR PO SCH (08:40)
[2018-11-14] MEDS: FUROSEMIDE 20 MG/2 ML IV SCH ×2 (08:40→17:09)
[2018-11-14] MEDS ORDERED: LISINOPRIL 5 MG TABLET PO SCH (09:00)
[2018-11-14] MEDS: CEFTRIAXONE PMX 1GM/50ML 50 ML IV SCH (11:25)
[2018-11-14 13:36] VITALS: BP 110/70
[2018-11-14 19:27] VITALS: BP 98/63
[2018-11-14] MEDS: ATORVASTATIN 40 MG TABLET PO SCH (20:48)
[2018-11-15] MEDS: DOXYCYCLINE 100 MG in DEXTROSE 5% 250 ML IV SCH (00:04)
[2018-11-15 01:08] VITALS: BP 98/55
[2018-11-15] MEDS: CARVEDILOL 12.5 MG TABLET PO SCH (05:17)
[2018-11-15] MEDS: GUAIFENESIN 200 MG TABLET PO SCH ×4 (05:17→21:11)
[2018-11-15 05:46] LABS: BASOPHILS # (AUTO) 0.05 x10^3/uL (0-0.1); BASOPHILS % (AUTO) 1 % (0-1); EOSINOPHILS # (AUTO) 0.27 x10^3/uL (0-0.4); EOSINOPHILS % (AUTO) 3 % (1-7); LYMPHOCYTES # (AUTO) 4.44 x10^3/uL (1-3.4); LYMPHOCYTES % (AUTO) 44 % (22-44); MD NO; MEAN CORPUSCULAR HEMOGLOBIN 31.7 pg (27.0-34.8); MEAN CORPUSCULAR HGB CONC 32.8 g/dL (32.4-35.8); MEAN CORPUSCULAR VOLUME 96.6 fL (80-100); MEAN PLATELET VOLUME 10.5 fL (7.4-10.4); MONOCYTES # (AUTO) 0.78 x10^3/uL (0.2-0.8); MONOCYTES % (AUTO) 8 % (2-9); NEUTROPHILS # (AUTO) 4.45 x10^3/uL (1.8-6.8); NEUTROPHILS % (AUTO) 45 % (42-75); PLATELET COUNT 230 x10^3/uL (130-400); RED BLOOD COUNT 5.03 x10^6/uL (3.82-5.3); RED CELL DISTRIBUTION WIDTH 16.5 % (9.6-15.2)
[2018-11-15 06:02] LABS: ALBUMIN 3.4 g/dL (3.4-5.0); ANION GAP 9 mmol/L (5-15); CALCIUM 9.1 mg/dL (8.5-10.1); CHLORIDE 105 mmol/L (98-107)
[2018-11-15 06:11] LABS: ALANINE AMINOTRANSFERASE 18 U/L (12-78); ALKALINE PHOSPHATASE 58 U/L (45-117); BILIRUBIN,TOTAL 0.9 mg/dL (0.2-1.0); CREATININE 1.76 mg/dL (0.55-1.02); TOTAL PROTEIN 7.5 g/dL (6.4-8.2)
[2018-11-15 07:28] VITALS: BP 93/58
[2018-11-15] MEDS ORDERED: CEFDINIR 300 MG CAPSULE PO SCH (07:30)
[2018-11-15] MEDS: POLYETHYLENE GLYCOL 17 GM PACKET PO PRN (08:28)
[2018-11-15] MEDS: APIXABAN 5 MG TABLET PO SCH ×2 (08:28→21:12)
[2018-11-15] MEDS: OMEPRAZOLE 20 MG CAPSULE.DR PO SCH (08:28)
[2018-11-15] MEDS: DOXYCYCLINE 100MG TABLET PO SCH ×2 (08:28→21:12)
[2018-11-15] MEDS: LISINOPRIL 5 MG TABLET PO SCH (08:30)
[2018-11-15] MEDS: FUROSEMIDE 20 MG TABLET PO SCH ×2 (08:30→21:12)
[2018-11-15] MEDS ORDERED: DOXY100T PO (10:35)
[2018-11-15] MEDS ORDERED: CEFD300C37 PO (10:35)
[2018-11-15] MEDS ORDERED: CARV25TA12 PO (10:35)
[2018-11-15] MEDS ORDERED: GUAI200T3 PO (10:35)
[2018-11-15] MEDS ORDERED: DOCU-131 PO (10:35)
[2018-11-15] MEDS ORDERED: LISI5TAB7 PO (10:35)
[2018-11-15] MEDS ORDERED: ATOR40TA78 PO (10:35)
[2018-11-15 11:05] VITALS: BP 123/81
[2018-11-15] MEDS ORDERED: FUROSEMIDE 20 MG TABLET PO SCH (12:00)
[2018-11-15] MEDS ORDERED: FUROSEMIDE 10 MG/ML ORAL SOL PO ONE (12:00)
[2018-11-15 12:53] VITALS: BP 124/81
[2018-11-15] MEDS: CARVEDILOL 25 MG TABLET PO SCH (18:03)
[2018-11-15 18:38] VITALS: BP 111/73
[2018-11-15] MEDS: ATORVASTATIN 40 MG TABLET PO SCH (21:11)
[2018-11-15] MEDS: DOCUSATE 100 MG CAPSULE PO PRN (21:12)
[2018-11-16 00:07] VITALS: BP 112/62
[2018-11-16 04:59] VITALS: BP 113/71
[2018-11-16] MEDS: GUAIFENESIN 200 MG TABLET PO SCH ×2 (05:00→10:00)
[2018-11-16] MEDS: CARVEDILOL 25 MG TABLET PO SCH (05:00)
[2018-11-16] MEDS: POLYETHYLENE GLYCOL 17 GM PACKET PO PRN (05:00)
[2018-11-16] MEDS: DOCUSATE 100 MG CAPSULE PO PRN (05:00)
[2018-11-16 05:28] LABS: BASOPHILS # (AUTO) 0.03 x10^3/uL (0-0.1); BASOPHILS % (AUTO) 0 % (0-1); EOSINOPHILS # (AUTO) 0.27 x10^3/uL (0-0.4); EOSINOPHILS % (AUTO) 3 % (1-7); LYMPHOCYTES # (AUTO) 4.15 x10^3/uL (1-3.4); LYMPHOCYTES % (AUTO) 41 % (22-44); MD NO; MEAN CORPUSCULAR HEMOGLOBIN 30.6 pg (27.0-34.8); MEAN CORPUSCULAR HGB CONC 31.9 g/dL (32.4-35.8); MEAN CORPUSCULAR VOLUME 95.9 fL (80-100); MEAN PLATELET VOLUME 9.9 fL (7.4-10.4); MONOCYTES # (AUTO) 0.85 x10^3/uL (0.2-0.8); MONOCYTES % (AUTO) 9 % (2-9); NEUTROPHILS # (AUTO) 4.77 x10^3/uL (1.8-6.8); NEUTROPHILS % (AUTO) 47 % (42-75); PLATELET COUNT 247 x10^3/uL (130-400); RED BLOOD COUNT 5.23 x10^6/uL (3.82-5.3); RED CELL DISTRIBUTION WIDTH 16.3 % (9.6-15.2)
[2018-11-16 05:39] LABS: ALBUMIN 3.5 g/dL (3.4-5.0); ANION GAP 8 mmol/L (5-15); CALCIUM 9.4 mg/dL (8.5-10.1); CHLORIDE 106 mmol/L (98-107)
[2018-11-16 05:43] LABS: ALANINE AMINOTRANSFERASE 20 U/L (12-78); ALKALINE PHOSPHATASE 63 U/L (45-117); BILIRUBIN,TOTAL 1.3 mg/dL (0.2-1.0); TOTAL PROTEIN 7.7 g/dL (6.4-8.2)
[2018-11-16] MEDS: OMEPRAZOLE 20 MG CAPSULE.DR PO SCH (06:01)
[2018-11-16 07:42] VITALS: BP 98/66
[2018-11-16] MEDS ORDERED: CEFDINIR 300 MG CAPSULE PO SCH (09:00)
[2018-11-16] MEDS: APIXABAN 5 MG TABLET PO SCH (09:59)
[2018-11-16] MEDS: DOXYCYCLINE 100MG TABLET PO SCH (10:00)
[2018-11-16] MEDS: FUROSEMIDE 20 MG TABLET PO SCH (10:00)
[2018-11-16] MEDS: LISINOPRIL 5 MG TABLET PO SCH (10:00)
== END 2018-11-16 11:20 | disposition home or self-care (01) | DRG 871 ==
LOC: ED 08:48 → EDIP 10:20 → 4EST 10:37 → DCLOUNGE 11-16 11:06
PROVIDERS: ADMIT Internal Medicine; ATTEND Internal Medicine
DX: A41.9 Sepsis, unspecified organism (principal); J18.9 Pneumonia, unspecified organism; I50.23 Acute on chronic systolic (congestive) heart failure; I13.0 Hypertensive heart and chronic kidney disease with heart failure and stage 1 through stage 4 chronic kidney disease, or unspecified chronic kidney disease; D68.69 Other thrombophilia; E78.5 Hyperlipidemia, unspecified; I48.2 Chronic atrial fibrillation; R73.9 Hyperglycemia, unspecified; J98.01 Acute bronchospasm; K57.30 Diverticulosis of large intestine without perforation or abscess without bleeding; N18.3 Chronic kidney disease, stage 3 (moderate); Z86.73 Personal history of transient ischemic attack (TIA), and cerebral infarction without residual deficits; Z87.891 Personal history of nicotine dependence; Z79.899 Other long term (current) drug therapy; Z90.49 Acquired absence of other specified parts of digestive tract; Z88.0 Allergy status to penicillin; Z88.5 Allergy status to narcotic agent
CPT/HCPCS: 36415; 71045; 74022; 74176; 74250; 80053; 81001; 83605; 83880; 84484; 85025; 87040; 87086; 93005; 94640; G0378; J0696; J7060; J1940

== ENCOUNTER 2018-12-22 02:39 | Emergency (ER) | payer MEDICARE ==
[~2018-12-22] VITALS: Ht 162.6 cm; Wt 86.6 kg
[~2018-12-22 02:39] MED LIST changes: +ASCO-96 PO; +ATOR20TA37 PO; +ATOR40TA78 PO; +B CO1TAB14 PO; +CALCIUM MAG ZINC D PO; +CARV25TA12 PO; +CEFD300C37 PO; +CHOL100012 PO; +CYAN500T2 PO; +DOCU-131 PO; +DOXY100T PO; +GUAI200T3 PO; +LISI5TAB7 PO; +OMEP40CA6 PO
[2018-12-22] MEDS ORDERED: SODIUM CHLORIDE FLUSH 10ML SYR IVF ONE (03:00)
[2018-12-22] MEDS ORDERED: LABETALOL 5MG/ML, 20ML IVPush ONE (03:00)
[2018-12-22 03:16] LABS: BASOPHILS # (AUTO) 0.05 x10^3/uL (0-0.1); BASOPHILS % (AUTO) 1 % (0-1); EOSINOPHILS % (AUTO) 2 % (1-7); LYMPHOCYTES # (AUTO) 2.49 x10^3/uL (1-3.4); LYMPHOCYTES % (AUTO) 24 % (22-44); MD NO; MEAN CORPUSCULAR HEMOGLOBIN 32.4 pg (27.0-34.8); MEAN CORPUSCULAR HGB CONC 32.8 g/dL (32.4-35.8); MEAN CORPUSCULAR VOLUME 98.9 fL (80-100); MEAN PLATELET VOLUME 10.5 fL (7.4-10.4); MONOCYTES # (AUTO) 0.77 x10^3/uL (0.2-0.8); MONOCYTES % (AUTO) 7 % (2-9); NEUTROPHILS # (AUTO) 6.97 x10^3/uL (1.8-6.8); NEUTROPHILS % (AUTO) 67 % (42-75); PLATELET COUNT 179 x10^3/uL (130-400); RED BLOOD COUNT 4.15 x10^6/uL (3.82-5.3); RED CELL DISTRIBUTION WIDTH 14.7 % (9.6-15.2)
[2018-12-22 03:27] LABS: INTERNATIONAL NORMALIZED RATIO 1.03 (0.93-1.1); PROTHROMBIN TIME 10.8 Seconds (9.6-11.5)
[2018-12-22 03:29] LABS: ALANINE AMINOTRANSFERASE 17 U/L (12-78); ALBUMIN 3.5 g/dL (3.4-5.0); ANION GAP 8 mmol/L (5-15); CHLORIDE 111 mmol/L (98-107); CREATININE 1.47 mg/dL (0.55-1.02)
[2018-12-22 03:34] LABS: ALKALINE PHOSPHATASE 74 U/L (45-117); BILIRUBIN,TOTAL 0.7 mg/dL (0.2-1.0); TOTAL PROTEIN 7.6 g/dL (6.4-8.2); TROPONIN I < 0.015 ng/mL (0.000-0.045)
[2018-12-22] MEDS ORDERED: FUROSEMIDE 40 MG/4 ML ONE (03:51)
[2018-12-22] MEDS ORDERED: LABETALOL 5MG/ML, 20ML ONE (03:52)
[2018-12-22 03:58] LABS: CULTURE INDICATED? YES; MICROSCOPIC AUTO
[2018-12-22] MEDS ORDERED: FUROSEMIDE 40 MG/4 ML IV ONE (04:00)
[2018-12-22 05:37] VITALS: BP 154/80
== END 2018-12-22 05:40 | disposition home or self-care (01) ==
LOC: ED 03:04
DX: I11.0 Hypertensive heart disease with heart failure (principal); I50.22 Chronic systolic (congestive) heart failure; R06.00 Dyspnea, unspecified; E78.5 Hyperlipidemia, unspecified; I48.91 Unspecified atrial fibrillation; Z87.891 Personal history of nicotine dependence; Z86.73 Personal history of transient ischemic attack (TIA), and cerebral infarction without residual deficits
CPT/HCPCS: 36415; 74022; 80053; 81001; 83690; 83880; 84484; 85025; 85610; 85730; 87086; 93005; 96374; 99284; J1940

== ENCOUNTER 2019-04-30 07:15 | Inpatient (IN) | payer MEDICARE ==
[~2019-04-30] VITALS: Ht 162.6 cm; Wt 87.6 kg
[~2019-04-30 07:15] MED LIST changes: -CYAN500T2 PO; +CYAN500T54 PO; -GUAI200T3 PO; +GUAI200T37 PO; +HYDR-826 PO; -HYDR25TA11 PO; +MELA5TAB14 PO; -MELA5TAB19 PO; +OMEP40CA42 PO; -OMEP40CA6 PO
[2019-04-30 07:53] VITALS: BP 144/83
[2019-04-30] MEDS ORDERED: BISACODYL 5 MG EC TABLET PO PRN (08:30)
[2019-04-30] MEDS ORDERED: PLEASE ENTER HEIGHT AND WEIGHT MC SCH (08:30)
[2019-04-30] MEDS ORDERED: BISACODYL 10 MG SUPP PR PRN (08:30)
[2019-04-30] MEDS ORDERED: FOLI0.8T2 PO (08:40)
[2019-04-30] MEDS ORDERED: MULT-658 PO (08:40)
[2019-04-30] MEDS ORDERED: GABA300C10 PO (08:40)
[2019-04-30] MEDS: LISINOPRIL 5 MG TABLET PO SCH (09:00)
[2019-04-30] MEDS: APIXABAN 5 MG TABLET PO SCH ×2 (09:00→21:16)
[2019-04-30] MEDS: DOCUSATE 100 MG CAPSULE PO SCH ×2 (09:00→21:16)
[2019-04-30] MEDS: SOTALOL 80MG TABLET PO SCH ×2 (09:22→21:16)
[2019-04-30 10:23] LABS: ANION GAP 3 mmol/L (5-15); CHLORIDE 111 mmol/L (98-107); CHOLESTEROL, TOTAL 104 mg/dL (140-239); CREATININE 1.42 mg/dL (0.55-1.02)
[2019-04-30 10:27] LABS: CHOL/HDL RATIO 2.5; FREE T4 (FREE THYROXINE) 0.97 ng/dL (0.76-1.46); HDL CHOL % 40 % (28-40); HDL CHOLESTEROL (DIRECT) 42 mg/dL (40-60); LDL CHOLESTEROL,CALCULATED 39 mg/dL (54-169); LDL/HDL RATIO 0.9 (0.5-3.0); TRIGLYCERIDES 114 mg/dL (50-200); TROPONIN I < 0.015 ng/mL (0.000-0.045); VLDL CHOLESTEROL 23 mg/dL (0-25)
[2019-04-30] MEDS ORDERED: ACETAMINOPHEN 325 MG TABLET ONE (13:11)
[2019-04-30] MEDS: ACETAMINOPHEN 325 MG TABLET PO PRN (13:13)
[2019-04-30 14:48] VITALS: BP 123/74
[2019-04-30 15:24] LABS: TROPONIN I < 0.015 ng/mL (0.000-0.045)
[2019-04-30 19:28] VITALS: BP 140/68
[2019-04-30 19:51] LABS: TROPONIN I < 0.015 ng/mL (0.000-0.045)
[2019-05-01 01:14] VITALS: BP 132/64
[2019-05-01] MEDS ORDERED: CARVEDILOL 3.125 MG TABLET PO SCH (07:30)
[2019-05-01 09:15] VITALS: BP 132/80
[2019-05-01] MEDS ORDERED: CARVEDILOL 3.125 MG TABLET PO ONE (10:00)
[2019-05-01] MEDS ORDERED: CARVEDILOL 3.125 MG TABLET ONE (10:02)
[2019-05-01] MEDS: OMEPRAZOLE 20 MG CAPSULE.DR PO SCH (10:08)
[2019-05-01] MEDS: DOCUSATE 100 MG CAPSULE PO SCH ×2 (10:09→20:15)
[2019-05-01] MEDS: APIXABAN 5 MG TABLET PO SCH ×2 (10:09→20:15)
[2019-05-01] MEDS: LISINOPRIL 5 MG TABLET PO SCH (10:09)
[2019-05-01 12:00] VITALS: BP 162/104
[2019-05-01] MEDS: SOTALOL 80MG TABLET PO SCH ×2 (12:02→20:15)
[2019-05-01] MEDS: FUROSEMIDE 20 MG/2 ML IV SCH ×2 (12:54→17:17)
[2019-05-01 14:02] VITALS: BP 151/95
[2019-05-01] MEDS: CARVEDILOL 6.25 MG TABLET PO SCH (17:17)
[2019-05-01 21:48] VITALS: BP 130/76
[2019-05-02 02:00] VITALS: BP 133/67
[2019-05-02 05:50] VITALS: BP 130/75
[2019-05-02] MEDS: OMEPRAZOLE 20 MG CAPSULE.DR PO SCH (05:53)
[2019-05-02] MEDS: CARVEDILOL 6.25 MG TABLET PO SCH ×2 (05:53→17:40)
[2019-05-02 07:26] VITALS: BP 126/64
[2019-05-02] MEDS: FUROSEMIDE 20 MG/2 ML IV SCH ×3 (07:30→17:40)
[2019-05-02] MEDS: SOTALOL 80MG TABLET PO SCH ×2 (08:09→21:04)
[2019-05-02] MEDS: APIXABAN 5 MG TABLET PO SCH ×2 (08:09→21:04)
[2019-05-02] MEDS: LISINOPRIL 5 MG TABLET PO SCH (08:09)
[2019-05-02] MEDS: DOCUSATE 100 MG CAPSULE PO SCH ×2 (08:10→21:00)
[2019-05-02] MEDS ORDERED: PROPOFOL 10 MG/ML, 20ML ONE (13:12)
[2019-05-02 14:13] VITALS: BP 104/47
[2019-05-02 17:41] VITALS: BP 122/63
[2019-05-02 20:02] VITALS: BP 125/68
[2019-05-02] MEDS: ACETAMINOPHEN 325 MG TABLET PO PRN (21:19)
[2019-05-03 01:29] VITALS: BP 111/61
[2019-05-03] MEDS: OMEPRAZOLE 20 MG CAPSULE.DR PO SCH (05:52)
[2019-05-03] MEDS: CARVEDILOL 6.25 MG TABLET PO SCH (07:24)
[2019-05-03 07:33] VITALS: BP 134/78
[2019-05-03] MEDS: DOCUSATE 100 MG CAPSULE PO SCH (08:40)
[2019-05-03] MEDS: SOTALOL 80MG TABLET PO SCH (08:40)
[2019-05-03] MEDS: LISINOPRIL 5 MG TABLET PO SCH (08:41)
[2019-05-03] MEDS: APIXABAN 5 MG TABLET PO SCH (08:41)
[2019-05-03] MEDS: FUROSEMIDE 20 MG/2 ML IV SCH (08:48)
[2019-05-03] MEDS ORDERED: LISINOPRIL 5 MG TABLET PO ONE (09:30)
[2019-05-03] MEDS ORDERED: LISI5TAB7 PO (11:06)
[2019-05-03] MEDS ORDERED: SOTA80TA18 PO (11:06)
[2019-05-04] MEDS ORDERED: LISINOPRIL 5 MG TABLET PO SCH (09:00)
== END 2019-05-03 12:54 | disposition home or self-care (01) | DRG 309 ==
LOC: 5SO 07:15 → DCLOUNGE 05-03 12:40
PROVIDERS: ADMIT Internal Medicine Cardiovascular Disease; ATTEND Internal Medicine Cardiovascular Disease
PROC: 5A2204Z Restoration of Cardiac Rhythm, Single (ICD-10-PCS; principal; 2019-05-02 13:00)
DX: I48.0 Paroxysmal atrial fibrillation (principal); D68.69 Other thrombophilia; I42.8 Other cardiomyopathies; E78.5 Hyperlipidemia, unspecified; N18.3 Chronic kidney disease, stage 3 (moderate); I12.9 Hypertensive chronic kidney disease with stage 1 through stage 4 chronic kidney disease, or unspecified chronic kidney disease; I08.3 Combined rheumatic disorders of mitral, aortic and tricuspid valves; Z88.5 Allergy status to narcotic agent; Z88.0 Allergy status to penicillin; Z86.73 Personal history of transient ischemic attack (TIA), and cerebral infarction without residual deficits; Z79.899 Other long term (current) drug therapy
CPT/HCPCS: 36415; 71046; 80048; 80061; 84439; 84443; 84484; 85014; 85018; 92960; 93005; G0378; J2704; J1940

== ENCOUNTER 2020-01-15 02:54 | Inpatient (IN) | payer MEDICARE ==
[~2020-01-15] VITALS: Ht 152.4 cm; Wt 96.0 kg
[~2020-01-15 02:54] MED LIST changes: +FOLI0.8T2 PO; +GABA300C10 PO; +SIMV40TA20 PO; -SIMV40TA3 PO; +SOTA80TA18 PO
--- NOTE | 2020-01-15 02:54 | NUR ---
PATIENT BIB EMS FROM HOME: GLF OFF BED. EMS NOTICED NO LEFT SIDED MOVEMENTS. PATIENT IS HYPERTENSIVE, AND UNABLE TO PROTECT AIRWAY. PATIENT WILL BE INTUBATED. 20MG ETOMIDATE, 120 SUCCS USED FOR SEDATION. PATIENT TOLERATED WELL. 7.5ET, 20@LIP: BILATERAL LUNG SOUNDS PRESENT, CO2 COLOR CHANGE PRESENT. PATIENT TAKEN TO CT @ 0305 WITH RN/TECH/MD/RESP. RETURNED TO TRAUMA ROOM @ 0311. ADDITIONAL IV PLACED, NICARDIPINE STARTED, SEDATION STARTED, HARTMANN PLACED, OG PLACED.
[2020-01-15] MEDS ORDERED: SODIUM CHLORIDE 0.9% 1,000 ML IV ONE (02:59)
[2020-01-15] MEDS ORDERED: SODIUM CHLORIDE FLUSH 10ML SYR IVF ONE (03:00)
[2020-01-15] MEDS ORDERED: PROPOFOL 100 ML IV ONE (03:16)
[2020-01-15 03:38] LABS: BASOPHILS # (AUTO) 0.04 x10^3/uL (0-0.1); BASOPHILS % (AUTO) 1 % (0-1); EOSINOPHILS # (AUTO) 0.24 x10^3/uL (0-0.4); EOSINOPHILS % (AUTO) 3 % (1-7); LYMPHOCYTES # (AUTO) 2.75 x10^3/uL (1-3.4); LYMPHOCYTES % (AUTO) 29 % (22-44); MD NO; MEAN CORPUSCULAR HEMOGLOBIN 32.4 pg (27.0-34.8); MEAN CORPUSCULAR HGB CONC 33.2 g/dL (32.4-35.8); MEAN CORPUSCULAR VOLUME 97.7 fL (80-100); MEAN PLATELET VOLUME 11.1 fL (7.4-10.4); MONOCYTES # (AUTO) 0.66 x10^3/uL (0.2-0.8); MONOCYTES % (AUTO) 7 % (2-9); NEUTROPHILS # (AUTO) 5.88 x10^3/uL (1.8-6.8); NEUTROPHILS % (AUTO) 61 % (42-75); PLATELET COUNT 170 x10^3/uL (130-400); RED BLOOD COUNT 4.69 x10^6/uL (3.82-5.3); RED CELL DISTRIBUTION WIDTH 14.9 % (9.6-15.2)
[2020-01-15] MEDS: PROPOFOL 100 ML IV PRN ×2 (03:40→09:45)
[2020-01-15 03:47] LABS: ALANINE AMINOTRANSFERASE 26 U/L (12-78); ALBUMIN 3.1 g/dL (3.4-5.0); ANION GAP 7 mmol/L (5-15); CALCIUM 8.6 mg/dL (8.5-10.1); CHLORIDE 111 mmol/L (98-107); CREATININE 1.57 mg/dL (0.55-1.02)
[2020-01-15 03:51] LABS: ALKALINE PHOSPHATASE 68 U/L (45-117); BILIRUBIN,TOTAL 0.8 mg/dL (0.2-1.0); TOTAL PROTEIN 7.5 g/dL (6.4-8.2); TROPONIN I < 0.015 ng/mL (0.000-0.045)
[2020-01-15 03:52] LABS: PROTHROMBIN TIME 10.6 Seconds (9.6-11.5)
--- NOTE | 2020-01-15 03:56 | NUR ---
LAW TUTOR: [facility] [employer] CONTACTED; REFERRAL #[phone]
--- NOTE | 2020-01-15 04:45 | NUR ---
PATIENT'S HAS ARRIVED IN ED. MD HECK TALKED WITH REGARDING PATIENTS STATUS. PATIENT'S AT BEDSIDE WITH PATIENT. UPDATED ON PLAN OF CARE. EDUCATION REGARDING PATIENT OUTCOMES WILL NEED TO BE RE-INTERATED MAY NOT FULLY UNDERSTANDING OUTCOMES.
--- NOTE | 2020-01-15 05:10 | NUR ---
NO CHANGE IN PATIENT STATUS. DRIPS BEING TITRATED PER PROTOCOL. FAMILY REMAINS AT BEDSIDE.
--- NOTE | 2020-01-15 07:06 | NUR ---
REPORT GIVEN TO HECTOR KIRK
--- NOTE | 2020-01-15 07:08 | NUR ---
REPORT RECEIVED FROM HECTOR RAYA. ASSUMED CARE OF PT. PT ON CONT BP, CARDIAC AND SPO2 MONITORS. AT BEDSIDE.
--- NOTE | 2020-01-15 07:29 | NUR ---
NEURO CHECK PERFORMED AND DIFFICULT TO ASSESS DUE TO INTUBATION/INJURY. PT WITHDREW ONLY TO PAIN ON LEFT ARM. NO RESPONSE TO PAIN ON RIGHT HAND, LEFT FOOT OR RIGHT FOOT. PT HAS SOME SPONTANEOUS MOVEMENT WITH RIGHT ARM/LEG. PUPILS PINPOINT BILATERALLY, 2MM. DIFFICULT TO ASSESS PUPILLARY REACTION D/T SIZE. AT BEDSIDE.HARRY MUNIZ WAS AT BEDSIDE TO EXPLAIN PROGNOSIS AND PT'S VERBALIZED UNDERSTANDING.
[2020-01-15] MEDS ORDERED: SUCCINYLCHOLINE 20 MG/ML, 10ML ONE (08:00)
[2020-01-15] MEDS ORDERED: ETOMIDATE 20 MG/10 ML ONE (08:00)
--- NOTE | 2020-01-15 08:09 | NUR ---
REPORT TO HECTOR HARPER ON CCU.
[2020-01-15] MEDS ORDERED: PROPOFOL 100 ML IV PRN (15:07)
[2020-01-15] MEDS ORDERED: LACTULOSE 20 GM/30 ML UDC NG PRN (15:30)
[2020-01-15] MEDS ORDERED: DEXTROSE 4 GM TAB.CHEW PO PRN (15:30)
[2020-01-15] MEDS ORDERED: BISACODYL 10 MG SUPP PR PRN (15:30)
[2020-01-15] MEDS ORDERED: FENTANYL PF 100 MCG/2ML IVPush PRN (15:30)
[2020-01-15] MEDS ORDERED: LIDOCAINE-MPF 1%, 2ML ENDO PRN (15:30)
[2020-01-15] MEDS ORDERED: SENNA/DOCUSATE TABLET NG PRN (15:30)
[2020-01-15] MEDS ORDERED: SENNA 176 MG/5 ML ORAL SOL NG PRN (15:30)
[2020-01-15] MEDS ORDERED: GLUCAGON 1 MG IM PRN (15:30)
[2020-01-15] MEDS ORDERED: DEXTROSE 50%, 50ML SYRINGE IVPush PRN (15:30)
[2020-01-15] MEDS ORDERED: PHARMACY MAY ADJ FOR RENAL FX MC SCH (15:30)
[2020-01-15] MEDS: SODIUM CHLORIDE FLUSH 10ML SYR IVF SCH (20:28)
[2020-01-16 04:00] VITALS: BP 138/51
[2020-01-16 04:43] LABS: ANION GAP 11 mmol/L (5-15); CALCIUM 8.3 mg/dL (8.5-10.1); CHLORIDE 115 mmol/L (98-107); CREATININE 1.25 mg/dL (0.55-1.02)
[2020-01-16 04:50] LABS: MEAN CORPUSCULAR HEMOGLOBIN 32.1 pg (27.0-34.8); MEAN CORPUSCULAR HGB CONC 32.8 g/dL (32.4-35.8); MEAN CORPUSCULAR VOLUME 97.8 fL (80-100); MEAN PLATELET VOLUME 10.9 fL (7.4-10.4); PLATELET COUNT 181 x10^3/uL (130-400); RED BLOOD COUNT 4.73 x10^6/uL (3.82-5.3); RED CELL DISTRIBUTION WIDTH 14.6 % (9.6-15.2)
[2020-01-16 05:38] LABS: BASOPHILS # (AUTO) 0.05 x10^3/uL (0-0.1); BASOPHILS % (AUTO) 0 % (0-1); EOSINOPHILS # (AUTO) 0.03 x10^3/uL (0-0.4); EOSINOPHILS % (AUTO) 0 % (1-7); LYMPHOCYTES # (AUTO) 1.85 x10^3/uL (1-3.4); LYMPHOCYTES % (AUTO) 10 % (22-44); MD SCAN; MONOCYTES # (AUTO) 1.54 x10^3/uL (0.2-0.8); MONOCYTES % (AUTO) 8 % (2-9); NEUTROPHILS # (AUTO) 15.21 x10^3/uL (1.8-6.8); NEUTROPHILS % (AUTO) 81 % (42-75)
[2020-01-16] MEDS ORDERED: LORazepam 2 MG/ML, 1ML IV ONE (12:30)
[2020-01-16] MEDS ORDERED: ATROPINE OPHTH SOLN 1%, 5ML PO PRN (12:30)
[2020-01-16] MEDS ORDERED: MORPHINE SULFATE 4 MG/ML, 1ML IV ONE (12:30)
[2020-01-16] MEDS ORDERED: ONDANSETRON 2MG/ML, 2ML IV PRN (12:30)
[2020-01-16] MEDS ORDERED: LORazepam 2 MG/ML, 1ML IV PRN (12:30)
[2020-01-16] MEDS ORDERED: MORPHINE 30MG/30ML PCA.SYR IV SCH (12:30)
[2020-01-16] MEDS: SODIUM CHLORIDE FLUSH 10ML SYR IVF SCH (14:57)
== END 2020-01-16 18:50 | disposition expired | DRG 64 ==
LOC: ED 04:13 → EDIP 04:34 → CCU 08:38
PROVIDERS: ADMIT Family Medicine; ATTEND Hospitalist
PROC: 0BH17EZ Insertion of Endotracheal Airway into Trachea, Via Natural or Artificial Opening (ICD-10-PCS; principal; 2020-01-15)
PROC: 5A1935Z Respiratory Ventilation, Less than 24 Consecutive Hours (ICD-10-PCS; 2020-01-15)
PROC: 5A09357 Assistance with Respiratory Ventilation, Less than 24 Consecutive Hours, Continuous Positive Airway Pressure (ICD-10-PCS; 2020-01-15)
DX: I61.1 Nontraumatic intracerebral hemorrhage in hemisphere, cortical (principal); N17.0 Acute kidney failure with tubular necrosis; G93.5 Compression of brain; G93.41 Metabolic encephalopathy; J96.01 Acute respiratory failure with hypoxia; I16.1 Hypertensive emergency; D68.69 Other thrombophilia; G81.94 Hemiplegia, unspecified affecting left nondominant side; Z68.41 Body mass index [BMI] 40.0-44.9, adult; J98.11 Atelectasis; Z99.11 Dependence on respirator [ventilator] status; I48.91 Unspecified atrial fibrillation; K29.70 Gastritis, unspecified, without bleeding; E78.5 Hyperlipidemia, unspecified; I11.0 Hypertensive heart disease with heart failure; I50.9 Heart failure, unspecified; E66.9 Obesity, unspecified; I49.9 Cardiac arrhythmia, unspecified; Z51.5 Encounter for palliative care; Z96.651 Presence of right artificial knee joint; Z66 Do not resuscitate; Z79.01 Long term (current) use of anticoagulants; Z82.3 Family history of stroke; Z82.49 Family history of ischemic heart disease and other diseases of the circulatory system; Z86.73 Personal history of transient ischemic attack (TIA), and cerebral infarction without residual deficits; Z87.891 Personal history of nicotine dependence; Z90.49 Acquired absence of other specified parts of digestive tract; Z88.5 Allergy status to narcotic agent; Z88.0 Allergy status to penicillin
CPT/HCPCS: 36415; 36600; 70450; 71045; 80048; 80053; 82803; 83735; 84478; 84484; 85025; 85610; 85730; 86850; 86900; 87070; 87081; 87205; 93005; 94002; 94003; 96374; 99291; G0378; J2704; J0330; J2060; J2270; J7030; J7050